=== PATIENT | male | born 1995 | race African-American/Black ===

== ENCOUNTER 2024-12-19 16:41 | Emergency (ER) | payer OTHER ==
[~2024-12-19] VITALS: Ht 185.4 cm; Wt 102.1 kg
[2024-12-19] MEDS ORDERED: NOVOLOG100 UNIT/2 SQ (16:55)
[2024-12-19] MEDS ORDERED: LANTUS SOL100 UNIT/1 SUB-Q (16:55)
[2024-12-19] MEDS ORDERED: TRAMADOL HCL50 MG PO (18:11)
[2024-12-19 18:16] VITALS: BP 142/87
== END 2024-12-19 18:16 | disposition home or self-care (01) ==
LOC: ED 16:41
DX: S80.02XA Contusion of left knee, initial encounter (principal); S80.01XA Contusion of right knee, initial encounter; E10.9 Type 1 diabetes mellitus without complications; Z79.4 Long term (current) use of insulin; V64.5XXA Driver of heavy transport vehicle injured in collision with heavy transport vehicle or bus in traffic accident, initial encounter
CPT/HCPCS: 73560; 99284